=== PATIENT | female | born 1975 | race Hispanic/Latino ===

== ENCOUNTER 2017-09-15 15:44 | Emergency (ER) | payer BC ==
[~2017-09-15] VITALS: Ht 215.9 cm; Wt 104.3 kg
[2017-09-15] MEDS ORDERED: ASPIRIN 81 MG CHEW TAB PO ONE (16:00)
[2017-09-15] MEDS ORDERED: MAGNESIUM/ALUMINUM/SIMETHICONE 30 ML UDC PO ONE (16:15)
[2017-09-15] MEDS ORDERED: LIDOCAINE VISC 2% SOLN 15 ML UDC PO ONE (16:15)
[2017-09-15] MEDS ORDERED: BELLADONNA ALK/PHENOBARBITAL 5 ML UDC PO ONE (16:15)
[2017-09-15] MEDS ORDERED: KETOROLAC TROMETHAMINE 30 MG/ML VIAL IV STA (16:30)
[2017-09-15 16:44] LABS: BASOPHILS % 0.3 % (0.0-1.0); EOSINOPHILS # (AUTO) 0.2 (0.0-0.4); EOSINOPHILS % 1.5 % (0.0-6.0); HEMATOCRIT 38.1 % (34.2-44.1); HEMOGLOBIN 12.6 g/dL (12.0-16.0); LYMPHOCYTES # (AUTO) 2.9 (1.0-3.2); LYMPHOCYTES % 23.3 % (18.0-39.1); MEAN CORPUSCULAR HEMOGLOBIN 30.3 pg (28-32); MEAN CORPUSCULAR HGB CONC 33.1 g/dL (31-35); MEAN CORPUSCULAR VOLUME 91.6 fL (81-99); MONOCYTES # (AUTO) 0.8 (0.2-0.8); MONOCYTES % 6.6 % (4.4-11.3); NEUTROPHILS # (AUTO) 8.3 (2.1-6.9); NEUTROPHILS % 67.9 % (38.7-80.0); PLATELET COUNT 303 x10e3/uL (140-360); RED BLOOD COUNT 4.16 x10e6/uL (3.6-5.1); RED CELL DISTRIBUTION WIDTH 14.7 % (11.7-14.4)
[2017-09-15 16:45] LABS: BILIRUBIN,URINE NEGATIVE (NEGATIVE); CLARITY,URINE CLEAR (CLEAR); COLOR,URINE YELLOW (YELLOW); KETONES,URINE NEGATIVE (NEGATIVE); LEUKOCYTE ESTERASE ,URINE NEGATIVE (NEGATIVE); NITRITE,URINE NEGATIVE (NEGATIVE); PROTEIN,URINE DIPSTICK NEGATIVE (NEGATIVE); URINE UROBILINOGEN 0.2 mg/dL (0.2 - 1)
[2017-09-15 16:52] LABS: INR 0.75; PARTIAL THROMBOPLASTIN TIME 23.5 seconds (23.8-35.5); PROTHROMBIN TIME 10.9 seconds (11.9-14.5)
[2017-09-15 17:01] LABS: CALCIUM OXALATE CRYSTALS,UR MODERATE (FEW); EPITHELIAL CELLS,URINE RARE /LPF; RBC,URINE 0-5 /HPF (0-5)
[2017-09-15 17:02] LABS: ALANINE AMINOTRANSFERASE 28 IU/L (0-55); ALBUMIN 3.5 g/dL (3.5-5.0); ALBUMIN/GLOBULIN RATIO 0.9 (0.8-2.0); ALKALINE PHOSPHATASE 82 IU/L (40-150); ANION GAP 11.1 mmol/L (8-16); BLOOD UREA NITROGEN 15 mg/dL (7-26); BUN/CREATININE RATIO 23 (6-25); CARBON DIOXIDE 24 mmol/L (22-29); CHLORIDE 106 mmol/L (98-107); CREATINE KINASE 35 IU/L (29-168); CREATININE, SERUM 0.64 mg/dL (0.57-1.11); EST GLOMERULAR FILTRATION RATE > 60 ML/MIN (60-); GLUCOSE 86 mg/dL (74-118); LIPASE 45 U/L (8-78); POTASSIUM 4.1 mmol/L (3.5-5.1); SODIUM 137 mmol/L (136-145)
--- NOTE | 2017-09-15 17:20 | Diagnostic Imaging Report ---
PROCEDURE: A single AP view of the chest. COMPARISON: None. INDICATIONS: CHEST PAIN FINDINGS: Lines/tubes: None. Lungs: The lungs are well inflated and clear. There is no evidence of pneumonia or pulmonary edema. Pleura: There is no pleural effusion or pneumothorax. Heart and mediastinum: The heart and the mediastinum are unremarkable. Right diaphragmatic eventration. Bones: No acute bony abnormality. IMPRESSION: 1. No acute cardiopulmonary disease. Dictated by: Gume Dallas M.D. on 09/15/2017 at 17:29 Electronically approved by: Gume Dallas M.D. on 09/15/2017 at 17:29
[2017-09-15 17:21] LABS: THYROID STIMULATING HORMONE 1.981 uIU/mL (0.350-4.940); TROPONIN I 0.005 ng/mL (0-0.300)
[2017-09-15 18:14] VITALS: BP 133/95
== END 2017-09-15 18:19 | disposition home or self-care (01) ==
LOC: ER 15:44
DX: R07.89 Other chest pain (principal)
CPT/HCPCS: 36415; 71010; 80053; 81001; 82550; 82553; 83690; 83880; 84443; 84484; 84702; 85025; 85610; 85730; 87086; 93005; 99284; J1885

== ENCOUNTER 2019-06-24 18:08 | Emergency (ER) | payer BC ==
[~2019-06-24] VITALS: Ht 157.5 cm; Wt 104.3 kg
--- OUTSIDE RECORDS SUMMARY | 2019-06-24 18:10 | XMS REPORT ---
Author Author [facility] Address Unknown Phone Unavailable Care Team Providers Care Track Sweeper Name Role Phone Jonathan NIEVES Unavailable Unavailable Problems This patient has no known problems. Allergies, Adverse Reactions, Alerts This patient has no known allergies or adverse reactions. Medications This patient has no known medications. Results Test Description Test Time Test Comments Text Results Atomic Results Result Comments CHEST SINGLE (NOT PORTABLE) [place] [address] Patient Name: ROSE BAEZA MR #: [id number] : 1975 Age/Sex: 42/F Req #: [id number] Adm Physician: Ordered by: LILIANA JOEL DIRECTOR CARDIOLOGY Report #: [id number] Location: ER Room/Bed: Procedure: [id number] DX/CHEST SINGLE (NOT PORTABLE) Exam Date: 09/15/17 Exam Time: 1640 REPORT STATUS: Signed PROCEDURE: A single AP view of the chest. COMPARISON: None. INDICATIONS: CHEST PAIN FINDINGS: Lines/tubes: None. Lungs: The lungs are well inflated and clear. There is no evidence of pneumonia or pulmonary edema. Pleura: There is no pleural effusion or pneumothorax. Heart and mediastinum: The heart and the mediastinum are unremarkable. Right diaphragmatic eventration. Bones: No acute bony abnormality. IMPRESSION: 1. No acute cardiopulmonary disease. Dictated by: Gume Live M.D. on 09/15/2017 at 17:29 Electronically approved by: Gume Live M.D. on 09/15/2017 at 17:29 Dictated By: GUME LIVE MD 28 Transcribed By: TEN on 09/15/171728 COPY TO: LILIANA JOEL NP
[2019-06-24] MEDS ORDERED: TRAMADOL HCL 50 MG TAB PO NR (20:00)
[2019-06-24 22:30] VITALS: BP 105/74
== END 2019-06-24 22:39 | disposition home or self-care (01) ==
LOC: ER 18:08
DX: M54.41 Lumbago with sciatica, right side (principal); I10 Essential (primary) hypertension
CPT/HCPCS: 93971; 99284

== ENCOUNTER 2024-09-13 10:17 | Emergency (ER) | payer BC, OTHER ==
[~2024-09-13] VITALS: Ht 154.9 cm; Wt 94.4 kg
[2024-09-13 10:27] VITALS: PULSE 75; RESP 16; TEMP 98.1; O2SAT 100
[2024-09-13] MEDS ORDERED: AMLODIPINE BESY10 MG PO (10:37)
[2024-09-13] MEDS ORDERED: ZEBETA10 MG PO (10:37)
[2024-09-13] MEDS ORDERED: DOXYCYCLINE HY100 MG PO (10:46)
[2024-09-13] MEDS ORDERED: LIDOCAINE HCL 1% 30ML-PF VIAL ONE (10:50)
[2024-09-13] MEDS: CEFTRIAXONE 1 GM VIAL IM ONE (10:57)
[2024-09-13] MEDS: KETOROLAC TROMETHAMINE 30 MG/ML VIAL IM ONE (10:58)
[2024-09-13] MEDS: ACETAMINOPHEN 325 MG TAB PO ONE (10:58)
== END 2024-09-13 11:07 | disposition home or self-care (01) ==
LOC: FSED 10:21
DX: L02.31 Cutaneous abscess of buttock (principal); I10 Essential (primary) hypertension
CPT/HCPCS: 96372; 99283; J0696; J1885; J2003